=== PATIENT | female | born 1970 | race African-American/Black ===

== ENCOUNTER 2018-02-23 03:16 | Emergency (ER) | payer BC, OTHER ==
[~2018-02-23] VITALS: Ht 185.4 cm; Wt 108.9 kg
--- NOTE | ~2018-02-23 | EKG ---
[place] [address] [facility] [place] [address] ELECTROCARDIOGRAM REPORT Name: BLANCA SHARMA Room #: DEP TAMIKA Reyes#: [id number] Admission: 02/23/18 Attend Phys: Discharge: 02/23/18 Date of : 74 Report #: [id number] THIS REPORT FOR: //name// [facility] ED Test Date: 2018-02-23 Test Time: 03:33:48 Pat Name: BLANCA SHARMA Department: Room: Gender: F [employer]ile Preparation Technician: EMANUEL : 1970 Requested By: Andi Jain Order Number: [id number] MD: Rafael Ortez Measurements Intervals [place] Rate: 58 P: 54 UT: 177 QRS: 54 QRSD: 91 T: 47 QT: 455 QTc: 447 Interpretive Statements Sinus rhythm Consider left ventricular hypertrophy Compared to ECG 03/10/2003 23:06:54 Sinus bradycardia no longer present Electronically Signed On 02-23-2018 11:00:06 CDT by Rafael Ortez [email or web address] <ELECTRONICALLY SIGNED> By: Rafael Ortez MD 02/23/18 1100 [id number] Rafael Ortez MD /JOSE ALBERTO
[~2018-02-23 03:16] MED LIST: NOHOMEMEDICATIONS; XANAX 1 MG TABLE1 MG PO
[2018-02-23] MEDS ORDERED: WOMEN MULTIVIT1 EACH PO (03:44)
[2018-02-23 03:53] LABS: ABSOLUTE NEUTROPHILS 4.4 thou/uL (1.4-8.2); BASOPHILS 0.9 % (0.0-2.0); EOSINOPHILS 3.9 % (0.0-3.0); HEMATOCRIT 37.4 % (37.0-47.0); HEMOGLOBIN 12.7 gm/dL (12.0-15.0); LYMPHOCYTES 37.9 % (24.0-44.0); MCHC 33.9 g/dL (28.0-37.0); MCV 88.5 fL (80.0-100.0); MONOCYTES 7.9 % (1.0-8.0); PLATELET COUNT 263 thou/uL (150-400); POLYS 49.4 % (36.0-66.0); RBC 4.22 mil/uL (4.20-5.00); RDW 13.7 % (10.5-14.5)
[2018-02-23 04:00] LABS: ANION GAP 8 mmol/L (7-16); BUN 17 mg/dL (7-18); CALCIUM 9.1 mg/dL (8.5-10.1); CHLORIDE 105 mmol/L (98-107); CO2 24 mmol/L (21-32); GLUCOSE 84 mg/dL (74-106); POTASSIUM 3.5 mmol/L (3.5-5.1); SODIUM 137 mmol/L (136-145)
[2018-02-23 04:03] LABS: APTT 27.1 Seconds (24.5-32.8)
[2018-02-23 04:09] LABS: ALBUMIN 3.5 g/dL (3.4-5.0); MAGNESIUM 1.9 mg/dL (1.8-2.4); SGOT 17 U/L (15-37); SGPT 15 U/L (30-65); TOTAL BILIRUBIN 0.3 mg/dL (<0.1-1.0); TOTAL PROTEIN 7.2 g/dL (6.4-8.2); TROPONIN-I < 0.04 ng/mL (<0.06)
[2018-02-23] MEDS ORDERED: NAPROSYN500 MG PO (04:42)
[2018-02-23] MEDS ORDERED: TRAMADOL 50 MG50 MG PO (04:42)
[2018-02-23 04:45] VITALS: BP 152/101
== END 2018-02-23 04:46 | disposition home or self-care (01) ==
LOC: ER 03:16
PROVIDERS: Emergency Medicine
DX: R07.89 Other chest pain (principal); F41.9 Anxiety disorder, unspecified; J45.909 Unspecified asthma, uncomplicated

== ENCOUNTER 2019-03-19 04:23 | Emergency (ER) | payer OTHER ==
[~2019-03-19] VITALS: Ht 185.4 cm; Wt 110.2 kg
[~2019-03-19 04:23] MED LIST changes: +AMLODIPINE BESYL5 MG PO; +IPRAT-ALBUT 0.5-3 ML INH; +NAPROSYN500 MG PO; +NEBULIZER MISCELL; +PREDNISONE 10 M10 MG PO; +TRAMADOL 50 MG50 MG PO; +VENTOLIN HFA 1818 GM INH; +WOMEN MULTIVIT1 EACH PO
[2019-03-19] MEDS ORDERED: ADVAIR 100-501 EACH INH (04:47)
[2019-03-19] MEDS ORDERED: EXCEDRIN CAPLE1 EACH PO (04:48)
[2019-03-19] MEDS ORDERED: IBUPROFEN 200200 M1 PO (04:48)
[2019-03-19] MEDS ORDERED: TOPAMAX 25 MG T25 M1 PO (04:49)
[2019-03-19] MEDS ORDERED: ALEVE COLD & S1 EACH PO (04:50)
[2019-03-19 05:29] LABS: ABSOLUTE NEUTROPHILS 3.4 thou/uL (1.4-8.2); BASOPHILS 0.7 % (0.0-2.0); EOSINOPHILS 3.6 % (0.0-3.0); HEMATOCRIT 37.9 % (37.0-47.0); LYMPHOCYTES 40.4 % (24.0-44.0); MCH 30.4 pg (26.0-34.0); MCHC 34.4 g/dL (28.0-37.0); MCV 88.4 fL (80.0-100.0); MONOCYTES 6.8 % (1.0-8.0); PLATELET COUNT 267 thou/uL (150-400); POLYS 48.5 % (36.0-66.0); RBC 4.29 mil/uL (4.20-5.00); RDW 13.6 % (10.5-14.5)
[2019-03-19 05:36] LABS: CALCIUM 9.5 mg/dL (8.5-10.1); POTASSIUM 3.8 mmol/L (3.5-5.1)
[2019-03-19 06:56] VITALS: BP 153/94
== END 2019-03-19 06:58 | disposition home or self-care (01) ==
LOC: ER 04:23
PROVIDERS: Emergency Medicine
DX: G43.909 Migraine, unspecified, not intractable, without status migrainosus (principal); J45.909 Unspecified asthma, uncomplicated; F17.210 Nicotine dependence, cigarettes, uncomplicated